=== PATIENT | male | born 1980 | race Caucasian/White ===

== ENCOUNTER 2020-04-03 09:48 | Emergency (ER) | payer OTHER ==
[~2020-04-03] VITALS: Ht 182.9 cm; Wt 104.3 kg
[2020-04-03] MEDS ORDERED: PROAIR HFA8.5 GM INH (10:18)
[2020-04-03] MEDS ORDERED: MEDROLDOSEPACK PO (10:20)
[2020-04-03 10:27] LABS: HEMATOCRIT 41.2 % (42.0-52.0); HEMOGLOBIN 14.1 gm/dL (14.0-18.0); MCH 27.6 pg (26.0-34.0); MCHC 34.2 g/dL (28.0-37.0); MCV 80.6 fL (80.0-100.0); MPV 6.9 fl. (7.2-11.1); NUCLEATED RBCS 0 /100WBC; PLATELET COUNT* 192 thou/uL (150-400); RBC 5.12 mil/uL (4.50-6.00); WBC 10.3 thou/uL (4.0-11.0)
[2020-04-03 10:30] LABS: BE 0.7 mmol/L (-2 to +3); PCO2 35.6 mmHg (35.0-45.0); PO2 74.4 mmHg (75.0-100.0); pH 7.451 (7.340-7.450)
[2020-04-03 10:38] LABS: CALCIUM 8.1 mg/dL (8.5-10.1); CREATININE 1.1 mg/dL (0.6-1.3); POTASSIUM 3.2 mmol/L (3.5-5.1)
[2020-04-03 10:46] LABS: APTT 27.6 Seconds (25.0-31.3); PROTIME 10.9 Seconds (9.20-11.50)
[2020-04-03 10:51] LABS: ALBUMIN 3.6 g/dL (3.4-5.0); TOTAL BILIRUBIN 0.6 mg/dL (<0.1-1.0); TOTAL PROTEIN 7.4 g/dL (6.4-8.2)
[2020-04-03 11:13] LABS: ABSOLUTE MONOCYTES 0.5 thou/uL (0.0-1.2); ABSOLUTE NEUTROPHILS 8.8 thou/uL (1.6-8.1); ATYPICAL LYMPHS 1 %
[2020-04-03 11:14] LABS: PLATELET ESTIMATE ADEQUATE
[2020-04-03 12:24] VITALS: BP 111/75
--- NOTE | 2020-04-03 14:52 | EKG ---
[place] [address] ELECTROCARDIOGRAM REPORT Name: DOT CAVANAUGH Room: [facility]#: [id number] Admission: 04/03/20 Attend Phys: Discharge: 04/03/20 Date of : 84 Date of Service: 04/03/20 1000 Report #: [id number] THIS REPORT FOR: //name// [facility] ED Test Date: 2020-04-03 Test Time: 10:00:24 Pat Name: DOT CAVANAUGH Department: Room: Gender: Director Of [employer]: : 1980 Requested By: Johnathon Layne Order Number: [id number] MD: Chaparro Blackman Measurements Intervals [place] Rate: 84 P: 27 LA: 123 QRS: 6 QRSD: 107 T: 9 QT: 367 QTc: 434 Interpretive Statements Sinus rhythm artifact noted No previous ECG available for comparison Electronically Signed On 04-03-2020 14:52:15 PREMIUM REPRESENTATIVE by Chaparro Blackman [email or web address] <ELECTRONICALLY SIGNED> By: Chaparro Blackman MD, [facility] 04/03/20 1452 1000 1000 Chaparro Blackman MD, FACC /EPI
== END 2020-04-03 12:25 | disposition home or self-care (01) ==
LOC: M.ERS 09:48
PROVIDERS: Family Medicine
DX: U07.1 COVID-19 (principal); Z90.49 Acquired absence of other specified parts of digestive tract